=== PATIENT | male | born 1985 | race Caucasian/White ===

== ENCOUNTER → 2016-09-01 | Outpatient (CLI) | payer BC, OTHER ==
--- NOTE | ~2016-09-01 | EKG ---
[place] [id number] [facility] [place] [address] ELECTROCARDIOGRAM REPORT Name: BE NAYLOR Room #: REG JESUS MJuvenal#: [id number] Admission: 09/01/16 Attend Phys: [place] DNP Discharge: Date of : 83 Report #: [id number] THIS REPORT FOR: //name// [facility] Test Date: 2016-09-01 Test Time: 15:44:03 Pat Name: BE NAYLOR Department: Room: Gender: Jar Capper: Barrett ACOSTA : 1985 Requested By: Travis Beach Order Number: [id number] MD: Ace Howard Measurements Intervals Manito Rate: 67 P: 30 MD: 160 QRS: 34 QRSD: 93 T: 14 QT: 381 QTc: 403 Interpretive Statements Sinus rhythm No significant abnormality No previous ECG available for comparison Electronically Signed On 09-02-2016 8:45:45 CDT by Ace Howard [email or web address] <ELECTRONICALLY SIGNED> By: Ace Howard MD, [facility] 09/02/16 0845 1544 1544 Ace Howard MD, FAC /EPI
== END ==
LOC: CV 15:25
DX: R07.9 Chest pain, unspecified (principal)